=== PATIENT | male | born 1990 | race African-American/Black ===

== ENCOUNTER 2020-01-23 15:38 | Emergency (ER) | payer OTHER ==
[~2020-01-23] VITALS: Ht 170.2 cm; Wt 68.0 kg
[2020-01-23] MEDS ORDERED: IBUPROFEN 800800 M1 PO (17:50)
[2020-01-23 18:17] VITALS: BP 123/87
== END 2020-01-23 18:18 | disposition home or self-care (01) ==
LOC: M.ERS 15:38
DX: S63.592A Other specified sprain of left wrist, initial encounter (principal); S20.219A Contusion of unspecified front wall of thorax, initial encounter; J45.909 Unspecified asthma, uncomplicated; W18.39XA Other fall on same level, initial encounter; Y93.89 Activity, other specified; Y92.89 Other specified places as the place of occurrence of the external cause; Y99.8 Other external cause status